=== PATIENT | male | born 1975 | race Caucasian/White ===

== ENCOUNTER 2020-10-18 09:50 | Emergency (ER) | payer BC, OTHER ==
[2020-10-18] MEDS ORDERED: Sodium Chloride 0.9% 1,000 ML IV ONE (10:01)
[2020-10-18] MEDS ORDERED: Ondansetron 4 MG/2 ML SDV IVPUSH ONE (10:01)
[2020-10-18] MEDS ORDERED: fentaNYL 100 MCG/2 ML SDV IVPUSH ONE ×2 (10:02→10:46)
--- NOTE | 2020-10-18 10:27 | PCM.PREANE ---
Preanesthetic Assessment - Procedure Proposed Procedure: Closed Reduction of left forearm - Anesthesia/Transfusion/Family Hx Anesthesia History: Prior Anesthesia Without Reaction Family History of Anesthesia Reaction: No Transfusion History: No Prior Transfusion(s) Intubation History: Unknown - Review of Systems General: No Symptoms Pulmonary: No Symptoms Cardiovascular: No Symptoms Gastrointestinal: No Symptoms Neurological: Numbness (Pinky finger) Other: Reports: Anxiety - Physical Assessment NPO Status Date: 10/18/20 NPO Status Time: 05:30 Vital Signs: Last Vital Signs Temp 96.8 F L 10/18/20 10:00 Pulse 64 10/18/20 10:00 Resp 16 10/18/20 10:00 BP 103/62 10/18/20 10:00 Pulse Ox 98 10/18/20 10:00 Height: 1.8 m Weight: 94.347 kg ASA Class: 2 Mental Status: Alert & Oriented x3 Airway Class: Mallampati = 2 Dentition: Reports: Normal Dentition Thyro-Mental Finger Breadths: 3 Mouth Opening Finger Breadths: 3 ROM/Head Extension: Full Lungs: Clear to Auscultation, Normal Respiratory Effort Cardiovascular: Regular Rate, Regular Rhythm, No Murmurs - Allergies Allergies/Adverse Reactions: Allergies Allergy/AdvReac Type Severity Reaction Status Date / Time No Known Allergies Allergy Verified 10/18/20 10:06 - Blood Blood Available: No Product(s) Available: None - Anesthesia Plan Pre-Op Medication Ordered: None - Acknowledgements Anesthesia Type Planned: MAC Pt an Appropriate Candidate for the Planned Anesthesia: Yes Alternatives and Risks of Anesthesia Discussed w Pt/Guardian: Yes Pt/Guardian Understands and Agrees with Anesthesia Plan: Yes PreAnesthesia Questionnaire - Past Health History Medical/Surgical History: Denies Medical/Surgical History HEENT History: Reports: Impaired Vision Cardiovascular History: Reports: None Respiratory History: Reports: None Gastrointestinal History: Reports: None Genitourinary History: Reports: None NAIL EXPERT History: Reports: None Musculoskeletal History: Reports: Arthritis Other Musculoskeletal History: Broken left arm Neurological History: Reports: Vertigo Psychiatric History: Reports: None Endocrine/Metabolic History: Reports: None Hematologic History: Reports: None Immunologic History: Reports: None Oncologic (Cancer) History: Reports: None Dermatologic History: Reports: None - Infectious Disease History Infectious Disease History: Reports: None - Past Surgical History HEENT Surgical History: Reports: Oral Surgery - SUBSTANCE USE Tobacco Use Status *Q: Never Tobacco User Tobacco Use Within Last Twelve Months: No Second Hand Smoke Exposure: No Days Per Week of Alcohol Use: 1 Number of Drinks Per Day: 1 Total Drinks Per Week: 1 Recreational Drug Use History: No - HOME MEDS Home Medications: Home Meds . [No Known Home Meds] 10/18/20 [History] - CURRENT (IN HOUSE) MEDS Current Meds: Current Medications Sodium Chloride (Normal Saline) 1,000 mls @ 999 mls/hr IV ONETIME ONE Stop: 10/18/20 11:01 Last Admin: 10/18/20 10:11 Dose: 999 mls/hr Documented by: Discontinued Medications Fentanyl (Fentanyl 100 Mcg/2 Ml Sdv) 100 mcg IVPUSH ONETIME ONE Stop: 10/18/20 10:03 Last Admin: 10/18/20 10:11 Dose: 100 mcg Documented by: Ondansetron HCl (Ondansetron 4 Mg/2 Ml Sdv) 4 mg IVPUSH ONETIME ONE Stop: 10/18/20 10:02 Last Admin: 10/18/20 10:10 Dose: 4 mg Documented by:
--- NOTE | 2020-10-18 10:54 | CR ---
Left forearm: 2 views of the left forearm were obtained. Comparison: No previous study. Fractures are identified within the distal one third diaphysis of the radius and ulna. There is apex anterior angulation by almost 90 degrees. Diffuse soft tissue swelling is noted. No additional abnormality is definitely appreciated. Impression: 1. Significantly angulated distal one third diaphyseal fractures within the left radius and ulna with diffuse soft tissue swelling. Diagnostic code #3
--- NOTE | 2020-10-18 10:59 | EDM.PDOC ---
ED HPI GENERAL MEDICAL PROBLEM - General Chief Complaint: Upper Extremity Injury/Pain Stated Complaint: BROKEN ARM Time Seen by Provider: 10/18/20 09:53 Source of Information: Reports: Patient History Limitations: Reports: No Limitations - History of Present Illness INITIAL COMMENTS - FREE TEXT/NARRATIVE: 45-year-old male presents the emergency department today with an injury to his left forearm. Patient states that about 930 this morning he was at work and had a piece of steel fall onto his forearm. He does have obvious deformity noted to the forearm. There is no open areas noted at the area of deformity however he does have an abrasion noted to his humeral area. Patient states he is otherwise healthy and does not take any prescription medications. He does not smoke. Left Arm Pain Score (Numeric/FACES): 8 - Related Data Allergies Allergy/AdvReac Type Severity Reaction Status Date / Time No Known Allergies Allergy Verified 10/18/20 10:06 Home Meds: Home Meds . [No Known Home Meds] 10/18/20 [History] Past Medical History - Past Health History Medical/Surgical History: Denies Medical/Surgical History HEENT History: Reports: Impaired Vision Cardiovascular History: Reports: None Respiratory History: Reports: None Gastrointestinal History: Reports: None Genitourinary History: Reports: None ADULT CARE MANAGER History: Reports: None Musculoskeletal History: Reports: Arthritis Other Musculoskeletal History: Broken left arm Neurological History: Reports: Vertigo Psychiatric History: Reports: None Endocrine/Metabolic History: Reports: None Hematologic History: Reports: None Immunologic History: Reports: None Oncologic (Cancer) History: Reports: None Dermatologic History: Reports: None - Infectious Disease History Infectious Disease History: Reports: None - Past Surgical History HEENT Surgical History: Reports: Oral Surgery Social & Family History - Tobacco Use Tobacco Use Status *Q: Never Tobacco User Second Hand Smoke Exposure: No - Alcohol Use Days Per Week of Alcohol Use: 1 Number of Drinks Per Day: 1 Total Drinks Per Week: 1 - Recreational Drug Use Recreational Drug Use: No Review of Systems - Review of Systems Review Of Systems: Comprehensive ROS is negative, except as noted in HPI. ED EXAM, GENERAL - Physical Exam Exam: See Below Exam Limited By: No Limitations General Appearance: Alert, WD/WN, Severe Distress Ears: Normal External Exam, Hearing Grossly Normal Nose: Normal Inspection Throat/Mouth: Normal Inspection, Normal Lips, Normal Voice, No Airway Compromise Head: Atraumatic Neck: Supple, Non-Tender. No: Normal Inspection (Left forearm visibly) Respiratory/Chest: No Respiratory Distress, Lungs Clear, Normal Breath Sounds, No Accessory Muscle Use, Chest Non-Tender Cardiovascular: Normal Peripheral Pulses, Regular Rate, Rhythm, No Edema, No Murmur, Bradycardia Peripheral Pulses: 2+: Radial (L), Radial (R) GI/Abdominal: Normal Bowel Sounds, Soft, Non-Tender, No Distention (Male) Exam: Deferred Rectal (Males) Exam: Deferred Back Exam: Normal Inspection Extremities: No Pedal Edema, Normal Capillary Refill. No: Normal Inspection, Normal Range of Motion (decreased ROM to left wrist due to pain and injury; pt is able to wiggle his digits), Non-Tender Neurological: Alert, Oriented, Normal Cognition Psychiatric: Normal Affect, Normal Mood Skin Exam: Warm, Normal Color, No Rash, Diaphoretic (Due to pain). No: Intact (Abrasion noted to left medial humerus) Lymphatic: No Adenopathy ED TRAUMA EXTREMITY PROCEDURES - Splinting Left Upper Extremity Splint Site: left forearm Pre-Procedure NV Status: Normal Post-Procedure NV Status: Normal Splint Material: Fiberglass Splint Design: Sugar Tong Applied & Form Fitted By: Provider, Nurse Provider Post-Splint Application NV Check: NV Status Normal, Good Position Complications: No #1 Interpretation EKG Date: 10/18/20 Time: 11:23 Rhythm: NSR Rate (Beats/Min): 42 [place]: Normal P-Wave: Present QRS: Normal ST-T: Normal QT: Normal Comparison: NA - No Prior EKG EKG Interpretation Comments: Per Dr. Forrest interpretation: Sinus or ectopic atrial bradycardia; atrial premature complex; borderline repolarization abnormality Course - Vital Signs Text/Narrative:: As stated above, patient presents without obvious deformity noted to the distal forearm area. Patient states this occurred about 930 this morning while at work. Neurovascular status is intact, radial pulse is palpable. Patient is able to wiggle his fingers however he says it causes him discomfort. I have ordered an x-ray of the left forearm as well as to have orthopedic surgeon, Dr. Chang come over to evaluate the patient. He states that he has in with a clinic patient and will be right over after.I have ordered EKG, preop labs to include a CBC, CMP, magnesium, PT/INR and PTT. Patient will have a Covid swab as well. I suspect patient likely will require surgery. Last Recorded V/S: Last Vital Signs Temp 96.8 F L 10/18/20 10:00 Pulse 64 10/18/20 10:00 Resp 16 10/18/20 10:00 BP 103/62 10/18/20 10:00 Pulse Ox 98 10/18/20 10:00 - Orders/Labs/Meds Orders: Active Orders 24 hr Category Date Time Status DME for Discharge [COMM] Stat Oth 10/18/20 13:31 Ordered Labs: Laboratory Tests 10/18/20 10/18/20 10/18/20 Range/Units 10:00 10:00 10:00 WBC 8.56 (4.23-9.07) K/mm3 RBC 5.66 (4.63-6.08) M/mm3 Hgb 16.2 (13.7-17.5) gm/dl Hct 50.1 (40.1-51.0) % MCV 88.5 (79.0-92.2) fl MCH 28.6 (25.7-32.2) pg MCHC 32.3 (32.2-35.5) g/dl RDW Std Deviation 44.4 H (35.1-43.9) fL Plt Count 299 (163-337) K/mm3 MPV 8.8 L (9.4-12.3) fl Neut % (Auto) 49.9 (34.0-67.9) % Lymph % (Auto) 39.1 (21.8-53.1) % Schley % (Auto) 8.5 (5.3-12.2) % Eos % (Auto) 2.0 (0.8-7.0) Baso % (Auto) 0.4 (0.1-1.2) % Neut # (Auto) 4.27 (1.78-5.38) K/mm3 Lymph # (Auto) 3.35 (1.32-3.57) K/mm3 Schley # (Auto) 0.73 (0.30-0.82) K/mm3 Eos # (Auto) 0.17 (0.04-0.54) K/mm3 Baso # (Auto) 0.03 (0.01-0.08) K/mm3 PT 10.8 (9.7-12.0) SECONDS INR 1.01 APTT 21.9 (21.7-31.4) SECONDS Sodium 143 (136-145) mEq/L Potassium 3.8 (3.5-5.1) mEq/L Chloride 107 (98-107) mEq/L Carbon Dioxide 27 (21-32) mEq/L Anion Gap 12.8 (5-15) BUN 22 H (7-18) mg/dL Creatinine 1.0 (0.7-1.3) mg/dL Est Cr Clr Drug Dosing 98.31 mL/min Estimated GFR (MDRD) > 60 (>60) mL/min BUN/Creatinine Ratio 22.0 H (14-18) Glucose 129 H (70-99) mg/dL Calcium 9.5 (8.5-10.1) mg/dL Magnesium 2.0 (1.8-2.4) mg/dL Total Bilirubin 0.4 (0.2-1.0) mg/dL AST 24 (15-37) U/L ALT 37 (16-63) U/L Alkaline Phosphatase 104 (46-116) U/L Total Protein 7.1 (6.4-8.2) g/dl Albumin 3.9 (3.4-5.0) g/dl Globulin 3.2 gm/dL Albumin/Globulin Ratio 1.2 (1-2) SARS-CoV-2 RNA (MIRANDA) (NEGATIVE) 10/18/20 Range/Units 10:05 WBC (4.23-9.07) K/mm3 RBC (4.63-6.08) M/mm3 Hgb (13.7-17.5) gm/dl Hct (40.1-51.0) % MCV (79.0-92.2) fl MCH (25.7-32.2) pg MCHC (32.2-35.5) g/dl RDW Std Deviation (35.1-43.9) fL Plt Count (163-337) K/mm3 MPV (9.4-12.3) fl Neut % (Auto) (34.0-67.9) % Lymph % (Auto) (21.8-53.1) % Schley % (Auto) (5.3-12.2) % Eos % (Auto) (0.8-7.0) Baso % (Auto) (0.1-1.2) % Neut # (Auto) (1.78-5.38) K/mm3 Lymph # (Auto) (1.32-3.57) K/mm3 Schley # (Auto) (0.30-0.82) K/mm3 Eos # (Auto) (0.04-0.54) K/mm3 Baso # (Auto) (0.01-0.08) K/mm3 PT (9.7-12.0) SECONDS INR APTT (21.7-31.4) SECONDS Sodium (136-145) mEq/L Potassium (3.5-5.1) mEq/L Chloride (98-107) mEq/L Carbon Dioxide (21-32) mEq/L Anion Gap (5-15) BUN (7-18) mg/dL Creatinine (0.7-1.3) mg/dL Est Cr Clr Drug Dosing mL/min Estimated GFR (MDRD) (>60) mL/min BUN/Creatinine Ratio (14-18) Glucose (70-99) mg/dL Calcium (8.5-10.1) mg/dL Magnesium (1.8-2.4) mg/dL Total Bilirubin (0.2-1.0) mg/dL AST (15-37) U/L ALT (16-63) U/L Alkaline Phosphatase (46-116) U/L Total Protein (6.4-8.2) g/dl Albumin (3.4-5.0) g/dl Globulin gm/dL Albumin/Globulin Ratio (1-2) SARS-CoV-2 RNA (MIRANDA) Negative (NEGATIVE) Meds: Medications Discontinued Medications Generic Name Dose Route Start Last Admin Trade Name Freq PRN Reason Stop Dose Admin Hydrocodone Bitart/Acetaminophen 1 tab 10/18/20 11:25 10/18/20 12:40 Acetaminophen/Hydrocodone 325-5 Mg Tab PO 10/18/20 11:26 1 tab ONETIME ONE Administration Fentanyl 100 mcg 10/18/20 10:02 10/18/20 10:11 Fentanyl 100 Mcg/2 Ml Sdv IVPUSH 10/18/20 10:03 100 mcg ONETIME ONE Administration Fentanyl 100 mcg 10/18/20 10:46 10/18/20 10:55 Fentanyl 100 Mcg/2 Ml Sdv IVPUSH 10/18/20 10:47 100 mcg ONETIME ONE Administration Sodium Chloride 1,000 mls @ 999 mls/hr 10/18/20 10:01 10/18/20 10:11 Normal Saline IV 10/18/20 11:01 999 mls/hr ONETIME ONE Administration Ondansetron HCl 4 mg 10/18/20 10:01 10/18/20 10:10 Ondansetron 4 Mg/2 Ml Sdv IVPUSH 10/18/20 10:02 4 mg ONETIME ONE Administration - Re-Assessments/Exams Free Text/Narrative Re-Assessment/Exam: 10/18/20 10:17 Dr. Chang, orthopedic surgeon here to evaluate the patient just as he is getting his x-rays completed. He states that forearm will be reduced as soon as he moves it and will not need surgery today. States that CMS is still intact as well as strong radial pulses. Dr. Chang returns to the room and states the arm is reduced to his liking. He states that he would like me to apply a sugar tong splint and the patient can be discharged to home. He will see him in the clinic tomorrow or Friday and will have surgery on Friday, October 25, 2020. 10/18/20 10:50 Was going to apply a sugar tong splint to the patient however he states he is still having a significant amount of pain. I have ordered for him to receive another 100 mics of fentanyl and we will attempt to apply the splint once his pain is more under control. 10/18/20 11:00 Radiologist impression 2 view of the left forearm: 1. Significantly angulated distal one third diaphyseal fractures within the left radius and ulna with diffuse soft tissue swelling Sugartong splint applied. Patient tolerated the procedure well. He states that his arm does have less pain noted after splint is in place. CMS is positive after placement. Patient is able to move all of his digits. Nursing staff will apply ice to the affected area. 10/18/20 11:45 Hematology is essentially unremarkable, coagulation is unremarkable, chemistry reveals a sodium of 143, potassium 3.8, anion gap 12.8, BUN 22, creatinine 1.0, glucose 129, magnesium 2.0 Patient is Covid negative I have ordered for this patient to receive Sanders. Will allow him to have some pain control and then discharge him to home. Dr. Chang's office phones and notifies us that the patient will be seen in his clinic tomorrow at 9:45 AM. 10/18/20 12:29 Patient's ring was removed and sent home with patient Departure - Departure Time of Disposition: 12:29 Disposition: Home, Self-Care 01 Condition: Good Clinical Impression: Fracture of radius and ulna Qualifiers: Encounter type: initial encounter Fracture type: closed Laterality: left Qualified Code(s): S52.92XA - Unspecified fracture of left forearm, initial encounter for closed fracture - Discharge Information Referrals: Sheree León PA-C [Primary Care Provider] - Forms: ED Department Discharge Additional Instructions: You were seen in the emergency department today after sustaining an injury to your left arm at work. X-rays were completed and did show a fracture of both the radius and ulna. Dr. Chang, orthopedic surgeon, was here to evaluate and did reduce the fracture. Per his recommendations a splint was then applied. You were given pain medications while in the emergency department as well. I have given you a prescription for a pain medication called Sanders. You may take 1-2 tabs every 4-6 hours as needed for more severe pain. If you are taking this medication regularly, recommend that you take some form of stool softener such as Dulcolax daily as the narcotic pain medication can cause constipation. Recommend that you take ibuprofen 600 mg every 6-8 hours as needed for pain. This will likely decrease swelling and inflammation as well as pain. Recommend putting ice over the affected area for 30 minutes at a time every 3 hours while awake. Also recommended to keep arm elevated on pillows to decrease inflammation. You were given information on compartment syndrome and symptoms to watch for. There is an appointment already scheduled for you with Dr. Chang, orthopedic surgeon. This is for tomorrow at 945 at [facility]. You will need to bring your photo ID and insurance card. Should your condition worsen or change, do not hesitate returning to the emergency department. Sepsis Event Note (ED) - Evaluation Sepsis Screening Result: No Definite Risk - Focused Exam Vital Signs: Vital Signs Temp Pulse Resp BP Pulse Ox 10/18/20 10:00 96.8 F L 64 16 103/62 98 - My Orders Last 24 Hours: My Active Orders 10/18/20 13:31 DME for Discharge [COMM] Stat - Assessment/Plan Last 24 Hours: My Active Orders 10/18/20 13:31 DME for Discharge [COMM] Stat
--- NOTE | 2020-10-18 11:10 | PCM.SN.2 ---
- Free Text/Narrative Note: Pre-op completed with patient. Discussed anesthetic plan with Kadi ADMINISTRATIVE PROGRAM SPECIALIST. Kadi stated that Dr. Chang did not need patient's arm reduced any further/sedation and patient would just get splinted until patient sees Dr. Chang in the office. As of now, sedation is not needed and will contact if the plan changes. Inga Noland, MINIATURE MODEL MAKER
[2020-10-18] MEDS ORDERED: Acetaminophen/HYDROcodone 325-5 MG Tab PO ONE (11:25)
== END 2020-10-18 13:56 | disposition home or self-care (01) ==
LOC: JD.ED 09:50 → JD.SDS 10:23 → JD.ED 13:06
DX: S52.502A Unspecified fracture of the lower end of left radius, initial encounter for closed fracture (principal); S52.602A Unspecified fracture of lower end of left ulna, initial encounter for closed fracture; Z20.822 Contact with and (suspected) exposure to COVID-19; W20.8XXA Other cause of strike by thrown, projected or falling object, initial encounter; Y92.89 Other specified places as the place of occurrence of the external cause; Y99.0 Civilian activity done for income or pay
CPT/HCPCS: 29105; 36415; 73090; 80053; 83735; 85025; 85610; 85730; 87635; 93005; 96374; 96375; 96376; 99284; A9270; J2405; J3010; J7030; 29125; 93010; U0002

== ENCOUNTER 2020-10-20 11:22 | Day surgery (SDC) | payer OTHER ==
[~2020-10-20 11:22] MED LIST: Lactated Ringers 1,000 ML IV SCH; Lidocaine 1%/Sod Bicarbonate in NS 8.4% 1 ML Syringe IDERM PRN; Sodium Chloride 0.9% 10 ML Syringe FLUSH PRN
--- NOTE | 2020-10-20 11:33 | PCM.PREANE ---
Preanesthetic Assessment - Procedure Proposed Procedure: Left radius/ulna ORIF - Anesthesia/Transfusion/Family Hx Anesthesia History: Prior Anesthesia Without Reaction Type of Anesthesia Reaction: Excessive Nausea/Vomiting (Patient gets motion sickness) Family History of Anesthesia Reaction: No Transfusion History: No Prior Transfusion(s) Intubation History: Unknown - Review of Systems General: No Symptoms Pulmonary: No Symptoms Cardiovascular: No Symptoms Gastrointestinal: No Symptoms Neurological: No Symptoms Other: Reports: Anxiety - Physical Assessment NPO Status Date: 10/19/20 NPO Status Time: 03:30 Vital Signs: BP 142/92 HR 54 RR 16 97% 98.2 Height: 1.8 m Weight: 96 kg ASA Class: 2 Mental Status: Alert & Oriented x3 Thyro-Mental Finger Breadths: 3 Mouth Opening Finger Breadths: 3 ROM/Head Extension: Full Lungs: Clear to Auscultation, Normal Respiratory Effort Cardiovascular: Regular Rate, Regular Rhythm, No Murmurs - Lab Values: Labs reviewed and okay to proceed - Imaging/EKG Impressions: EKG SB HR 42 - Allergies Allergies/Adverse Reactions: Allergies Allergy/AdvReac Type Severity Reaction Status Date / Time No Known Allergies Allergy Verified 10/19/20 15:45 - Blood Blood Available: No Product(s) Available: None - Acknowledgements Anesthesia Type Planned: General Anesthesia Pt an Appropriate Candidate for the Planned Anesthesia: Yes Alternatives and Risks of Anesthesia Discussed w Pt/Guardian: Yes Pt/Guardian Understands and Agrees with Anesthesia Plan: Yes PreAnesthesia Questionnaire - Past Health History Medical/Surgical History: Denies Medical/Surgical History HEENT History: Reports: Impaired Vision Cardiovascular History: Reports: None Respiratory History: Reports: None Gastrointestinal History: Reports: None Genitourinary History: Reports: None DIRECTOR MERIT SYSTEM History: Reports: None Musculoskeletal History: Reports: Arthritis Other Musculoskeletal History: Broken left arm Neurological History: Reports: Vertigo, Other (See Below) Other Neuro History: 5-6 years old he fell about a story and hit head on cement with possible concussion but patient is unsure Psychiatric History: Reports: None Endocrine/Metabolic History: Reports: None Hematologic History: Reports: None Immunologic History: Reports: None Oncologic (Cancer) History: Reports: None Dermatologic History: Reports: None - Infectious Disease History Infectious Disease History: Reports: None, Shingles (History of shingles 2 years ago) - Past Surgical History HEENT Surgical History: Reports: Oral Surgery - SUBSTANCE USE Tobacco Use Status *Q: Never Tobacco User Tobacco Use Within Last Twelve Months: No Second Hand Smoke Exposure: No Days Per Week of Alcohol Use: 0 Number of Drinks Per Day: 0 Total Drinks Per Week: 0 Recreational Drug Use History: No - HOME MEDS Home Medications: Home Meds RX: Hydrocodone/Acetaminophen [HYDROcodone-Acetaminophen 5-325 MG] 1 - 2 tab PO Q4HR PRN 10/19/20 [History] - CURRENT (IN HOUSE) MEDS Current Meds: Current Medications Lactated Ringer's (Ringers, Lactated) 1,000 mls @ 125 mls/hr IV ASDIRECTED NAIF Stop: 10/20/20 23:00 Lidocaine/Sodium Bicarbonate (Lidocaine 1%/Sod Bicarbonate In Ns 8.4% 1 Ml Syringe) 0.25 ml IDERM ONETIME PRN PRN Reason: Prior to IV Start Stop: 10/20/20 18:00 Sodium Chloride (Sodium Chloride 0.9% 10 Ml Syringe) 10 ml FLUSH ASDIRECTED PRN PRN Reason: Keep Vein Open Stop: 10/20/20 18:00
[2020-10-20] MEDS ORDERED: Scopolamine 1.5 MG Transdermal Patch TOP ONE (11:53)
[2020-10-20] MEDS ORDERED: Dexamethasone 4 MG/ML 5 ML MDV ONE (12:02)
[2020-10-20] MEDS ORDERED: Ondansetron 4 MG/2 ML SDV ONE (12:02)
[2020-10-20] MEDS ORDERED: fentaNYL 250 MCG/5 ML SDV ONE (12:03)
[2020-10-20] MEDS ORDERED: Midazolam 1 MG/ML 2 ML SDV ONE (12:03)
[2020-10-20] MEDS ORDERED: Propofol 200 MG/20 ML SDV ONE ×3 (12:03→13:38)
[2020-10-20] MEDS ORDERED: Bupivacaine 0.25% 10 ML SDV ONE (12:10)
[2020-10-20] MEDS ORDERED: ceFAZolin 1 GM Vial ONE (12:57)
[2020-10-20] MEDS ORDERED: diphenhydrAMINE 50 MG/ML SDV ONE (13:32)
[2020-10-20] MEDS ORDERED: Lactated Ringers 1,000 ML ONE (13:39)
[2020-10-20] MEDS ORDERED: Ketorolac 30 MG/ML SDV ONE (14:05)
[2020-10-20] MEDS ORDERED: fentaNYL 100 MCG/2 ML SDV IVPUSH PRN (15:01)
[2020-10-20] MEDS ORDERED: Ondansetron 4 MG/2 ML SDV IVPUSH PRN (15:01)
[2020-10-20] MEDS ORDERED: HYDROmorphone 0.5 MG/0.5 ML Syringe IVPUSH PRN (15:01)
--- NOTE | 2020-10-20 15:05 | PCM.POSTAN ---
POST ANESTHESIA ASSESSMENT - MENTAL STATUS Mental Status: Alert, Oriented - VITAL SIGNS Vital Signs: Last Vital Signs Temp 98.7 F 10/20/20 14:44 Pulse 50 L 10/20/20 14:44 Resp 15 10/20/20 14:44 BP 163/103 H 10/20/20 14:44 Pulse Ox 99 10/20/20 14:44 Recheck BP: 150/99 when patient had arm still - RESPIRATORY Respiratory Status: Respiratory Rate WNL, Airway Patent, O2 Saturation Stable - CARDIOVASCULAR CV Status: Pulse Rate WNL, Blood Pressure Stable - GASTROINTESTINAL GI Status: No Symptoms - PAIN Pain Score: 0 - POST OP HYDRATION Hydration Status: Adequate & Stable
[2020-10-20] MEDS ORDERED: Acetaminophen/HYDROcodone 325-5 MG Tab PO PRN (15:27)
--- NOTE | 2020-10-20 16:05 | CR ---
Left forearm: 6 views of the left forearm were obtained utilizing C-arm device. Comparison: Prior study of 10/18/20. Study shows reduction as well as fixation with plate and screws. Alignment appears anatomic on post reduction study. Fluoroscopy time is given as 6.5 seconds. Impression: 1. Reduction and fixation as described above. Diagnostic code #2
--- NOTE | 2020-10-20 17:14 | PCM48HPAN ---
Post Anesthesia Note - EVALUATION WITHIN 48HRS OF ANESTHETIC Vital Signs in Normal Range: Yes Patient Participated in Evaluation: Yes Respiratory Function Stable: Yes Airway Patent: Yes Cardiovascular Function Stable: Yes Hydration Status Stable: Yes Pain Control Satisfactory: Yes Nausea and Vomiting Control Satisfactory: Yes Mental Status Recovered: Yes Vital Signs: Last Vital Signs Temp 98.2 F 10/20/20 16:15 Pulse 65 10/20/20 16:15 Resp 16 10/20/20 16:15 BP 140/100 H 10/20/20 16:15 Pulse Ox 95 10/20/20 16:15 - COMMENTS/OBSERVATIONS Free Text/Narrative:: See note from Dung RN discussing N/T with Tea Gonzalez regarding to thumb right pointer and middle fingers.
--- NOTE | 2020-10-30 07:52 | PCM.OPNOTE ---
- General Post-Op/Procedure Note Date of Surgery/Procedure: 10/20/20 Operative Procedure(s): open reduction internal fixation left both bone forearm fracture Pre Op Diagnosis: left radius and ulnar shaft fracture Post-Op Diagnosis: Same Anesthesia Technique: General LMA, Local Primary Surgeon: Fabrice Chang Anesthesia Provider: Inga Noland [employer]: Tea Gonzalez in mLs: 5 Complications: None Condition: Good
--- NOTE | 2020-10-30 08:15 | OR ---
DATE OF OPERATION: 10/20/2020 SURGEON: Fabrice Chang MD OPERATION PERFORMED: Open reduction and internal fixation of left both-bone forearm fracture. PREOPERATIVE DIAGNOSIS: Left radius and ulnar shaft fractures. POSTOPERATIVE DIAGNOSIS: Left radius and ulnar shaft fractures. ANESTHESIA: General LMA with local. ANESTHESIA PROVIDER: Ritchie Brownlee. ICU SPECIALIST: Tea Gonzalez PA-C. ESTIMATED BLOOD LOSS: 5 mL. COMPLICATIONS: None. CONDITION: Stable. DESCRIPTION OF PROCEDURE: The patient was identified in the preoperative holding area. Proper site was marked and identified by surgeon. The patient was taken back to the operative theater, where after adequate anesthesia, the patient's left upper extremity had a nonsterile tourniquet applied and was then sterilely prepped and draped in the usual sterile fashion. OR time-out was performed. The patient received 2 g IV Ancef. Left upper extremity was exsanguinated. Tourniquet was insufflated to 200 mmHg. A standard volar approach of Jim was done over the fracture site to over the FCR tendon. This was retracted medially. Takedown was done all the way down to the pronator quadratus. This was taken off the radius. Fracture site was identified. It was curetted and rongeured of all fracture hematoma. At this time, as we were waiting for K-wires to be opened, I did have to turn attention to the ulna. Incision was made between the FCU and the ECU. This was taken down to the fracture site. It was curetted and rongeured of all fracture hematoma. Reduction was then done. A 6-hole Martin 3.5 compression plate was then placed. It was found to have anatomic reduction on both AP and lateral views. 6 cortices were then obtained both proximally and distally from the fracture site. Attention was then turned to the radius and again reduction was done. A 6-hole Martin compression plate was then placed and 6 cortical screws obtaining 6 cortices on either side of the fracture site. We had good compression and anatomic reduction on both AP and lateral views of the radius and the ulna. Adequate saline was irrigated through the wound. 2-0 Vicryl was used subcutaneously, and Monocryl was used for skin closure. The patient was placed in a sterile soft dressing and sent to the PACU in stable condition. MMLIA /[id number]
== END 2020-10-20 16:40 | disposition home or self-care (01) ==
LOC: JD.SDS 11:22
PROVIDERS: ATTEND Orthopaedic Surgery
DX: S52.202A Unspecified fracture of shaft of left ulna, initial encounter for closed fracture (principal); S52.302A Unspecified fracture of shaft of left radius, initial encounter for closed fracture; X58.XXXA Exposure to other specified factors, initial encounter
CPT/HCPCS: 25575; 76000; A9270; C1713; J0690; J1100; J1200; J1885; J2250; J2405; J2704; J3010; J3490; J7120; 01830

== ENCOUNTER 2022-09-01 08:42 | Emergency (ER) | payer OTHER ==
[2022-09-01] MEDS ORDERED: Famotidine 20 MG Tab PO ONE (09:42)
[2022-09-01] MEDS ORDERED: diphenhydrAMINE 50 MG Cap PO ONE (09:42)
[2022-09-01] MEDS ORDERED: predniSONE 20 MG Tab PO ONE (09:42)
== END 2022-09-01 11:00 | disposition home or self-care (01) ==
LOC: JD.ED 08:42
DX: L23.9 Allergic contact dermatitis, unspecified cause (principal)
CPT/HCPCS: 99282; A9270; J7512; Q0163